=== PATIENT | male | born 1950 | race Caucasian/White ===

== ENCOUNTER 2021-06-03 23:05 | Emergency (ER) | payer MEDICARE, BC ==
[2021-06-03] MEDS ORDERED: Sodium Chloride 0.9% 10 ML Syringe FLUSH PRN (23:34)
[2021-06-04 00:03] LABS: ANION GAP 14.4 mmol/L (5-15); CHLORIDE,CL 98 mmol/L (98-107); SODIUM,NA 136 mmol/L (136-145)
[2021-06-04 00:57] VITALS: BP 165/99; PULSE 75
--- NOTE | 2021-06-04 03:53 | EDM.PDOC ---
ED HPI GENERAL MEDICAL PROBLEM - General Chief Complaint: Cardiovascular Problem Stated Complaint: heart "hiccup" Time Seen by Provider: 06/03/21 23:10 Source of Information: Reports: Patient, Family History Limitations: Reports: No Limitations - History of Present Illness INITIAL COMMENTS - FREE TEXT/NARRATIVE: Pt. presents to ER with complaints of palpitations. He states that the symptoms started this evening while he was watching TV. She states that the symptoms are intermittent in nature and had resolved by the time he arrived to ER. He denies any chest pain. No jaw, arm, neck or back pain. He denies any diaphoresis. No nausea, vomiting, or diarrhea. He states that he has not recently been ill. Pt. has a history of hypertension. He recently was taken off amlodipine and started on HCTZ because he has having problems with peripheral edema. He initially denied it, but according to his chart he did have some problems with palpitations in the past, for which he was prescribed Toprol XL. Onset: Today Onset Date: 06/04/21 Location: Reports: Chest - Related Data Allergies Allergy/AdvReac Type Severity Reaction Status Date / Time wool Allergy Rash Verified 09/11/16 08:39 Home Meds: Home Meds Cholecalciferol (Vitamin D3) [Vitamin D3] 1,000 units PO DAILY 09/09/16 [History] ClonazePAM [KlonoPIN] 0.25 mg PO BEDTIME 09/09/16 [History] Fish Oil/[place]-3 Fatty Acids [Fish Oil 1,000 MG] 1,000 mg PO DAILY 09/09/16 [His tory] Garlic 1,000 mg PO DAILY 09/09/16 [History] Metoprolol Succinate 50 mg PO DAILY 09/09/16 [History] Multivit-Min/FA/Lycopen/Lutein [Centrum Silver Tablet] 1 tab PO DAILY 09/09/16 [History] Sildenafil Citrate [Sildenafil] 100 mg PO DAILY PRN 09/09/16 [History] Triamcinolone Acetonide [Triamcinolone Acetonide 0.5%] 1 applic TOP BID PRN 09/09/16 [History] Ubidecarenone [Co Q-10] 100 mg PO DAILY 09/09/16 [History] atorvaSTATin [Lipitor] 10 mg PO BEDTIME 09/09/16 [History] Past Medical History HEENT History: Reports: Cataract, Hard of Hearing, Other (See Below) Other HEENT History: presbyopia. hypermetropia Cardiovascular History: Reports: High Cholesterol, Other (See Below) Other Cardiovascular History: palpitations Respiratory History: Reports: None Gastrointestinal History: Reports: GERD, Hemorrhoids Genitourinary History: Reports: Other (See Below) Other Genitourinary History: ed Musculoskeletal History: Reports: Neck Pain, Chronic, Osteoarthritis, Other (See Below) Other Musculoskeletal History: periodic limb movement disorder. carpal tunnel syndrome Neurological History: Reports: Neuropathy, Peripheral Other Neuro History: TINGLING TO FINGERS Psychiatric History: Reports: Other (See Below) Other Psychiatric History: sleep disturbance Endocrine/Metabolic History: Reports: None Hematologic History: Reports: None Immunologic History: Reports: None Oncologic (Cancer) History: Reports: Prostate Dermatologic History: Reports: None, Other (See Below) Other Dermatologic History: skin lesion to face - Past Surgical History HEENT Surgical History: Reports: Tonsillectomy, Other (See Below) Other HEENT Surgeries/Procedures: rt nasal mass excision Cardiovascular Surgical History: Reports: None GI Surgical History: Reports: None Male Surgical History: Reports: Prostatectomy Endocrine Surgical History: Reports: None Neurological Surgical History: Reports: None Musculoskeletal Surgical History: Reports: None Social & Family History - Family History Family Medical History: No Pertinent Family History - Caffeine Use Caffeine Use: Reports: Coffee ED ROS GENERAL - Review of Systems Review Of Systems: See Below Constitutional: Reports: No Symptoms HEENT: Reports: No Symptoms Respiratory: Reports: No Symptoms Cardiovascular: Reports: Palpitations, Other (fluttering in chest) Endocrine: Reports: No Symptoms GI/Abdominal: Reports: No Symptoms : Reports: No Symptoms Musculoskeletal: Reports: No Symptoms Skin: Reports: No Symptoms Neurological: Reports: No Symptoms Psychiatric: Reports: No Symptoms Hematologic/Lymphatic: Reports: No Symptoms Immunologic: Reports: No Symptoms ED EXAM, GENERAL - Physical Exam Exam: See Below Exam Limited By: No Limitations General Appearance: Alert, WD/WN, No Apparent Distress Neck: Normal Inspection, Supple, Non-Tender, Full Range of Motion Respiratory/Chest: No Respiratory Distress, Lungs Clear, Normal Breath Sounds, No Accessory Muscle Use, Chest Non-Tender Cardiovascular: Normal Peripheral Pulses, Regular Rate, Rhythm, No Edema, No JVD, No Murmur Peripheral Pulses: 4+: Radial (L) GI/Abdominal: Soft, Non-Tender, No Distention, No Mass (Male) Exam: Deferred Rectal (Males) Exam: Deferred Back Exam: Normal Inspection Extremities: Normal Inspection, Normal Range of Motion, Non-Tender, No Pedal Edema, Normal Capillary Refill Neurological: Alert, Oriented, CN II-XII Intact, Normal Cognition, Normal Gait, No Motor/Sensory Deficits Psychiatric: Normal Affect, Normal Mood Skin Exam: Warm, Dry, Normal Color. No: Diaphoretic Course - Vital Signs Last Recorded V/S: Last Vital Signs Temp 36.8 C 06/03/21 23:05 Pulse 75 06/04/21 00:40 Resp 10 L 06/04/21 00:40 BP 165/99 H 06/04/21 00:40 Pulse Ox 95 06/04/21 00:40 - Orders/Labs/Meds Orders: Active Orders 24 hr Category Date Time Status Peripheral IV Insertion Adult [OM.PC] Routine Oth 06/03/21 23:35 Ordered Labs: Laboratory Tests 06/03/21 06/03/21 06/03/21 Range/Units 23:30 23:30 23:30 WBC 6.2 (4.0-10.0) x10^3/uL RBC 4.64 (4.5-6.0) x10^6/uL Hgb 14.4 (14.0-18.0) g/dL Hct 41.0 (40.0-52.0) % MCV 88.4 (78.0-93.0) fL MCH 31.0 (26.0-32.0) pg MCHC 35.1 (32.0-36.0) g/dL RDW Coeff of Johnathan 13.5 (10.0-15.0) % Plt Count 159 (130-400) x10^3/uL Neut % (Auto) 58.0 (50.0-80.0) % Lymph % (Auto) 25.9 (25.0-50.0) % Mcintosh % (Auto) 13.5 H (2.0-11.0) % Eos % (Auto) 2.3 (0.0-4.0) % Baso % (Auto) 0.3 (0.2-1.2) % Sodium 136 (136-145) mmol/L Potassium 3.4 L (3.5-5.1) mmol/L Chloride 98 (98-107) mmol/L Carbon Dioxide 27 (21-32) mmol/L Anion Gap 14.4 (5-15) mmol/L BUN 17 (7-18) mg/dL Creatinine 1.0 (0.70-1.30) mg/dL Est Cr Clr Drug Dosing 70.07 mL/min Estimated GFR (MDRD) > 60 Glucose 119 H (70-99) mg/dL Calcium 9.0 (8.5-10.1) mg/dL Corrected Calcium 8.9 (8.5-10.1) mg/dL Phosphorus 4.1 (2.6-4.7) mg/dL Magnesium 2.4 (1.8-2.4) mg/dL Total Bilirubin 0.9 (0.2-1.0) mg/dL AST 24 (15-37) U/L ALT 36 (16-63) U/L Alkaline Phosphatase 86 (46-116) U/L Troponin I High Sens 3 (<=76) ng/L Total Protein 7.9 (6.4-8.2) g/dL Albumin 4.1 (3.4-5.0) g/dL Globulin 3.8 Albumin/Globulin Ratio 1.08 TSH, Ultra Sensitive 2.486 (0.358-3.74) uIU/mL Meds: Medications Discontinued Medications Generic Name Dose Route Start Last Admin Trade Name Freq PRN Reason Stop Dose Admin Sodium Chloride 10 ml 06/03/21 23:34 Sodium Chloride 0.9% 10 Ml Syringe FLUSH ASDIRECTED PRN Keep Vein Open Departure - Departure Time of Disposition: 00:45 Disposition: Home, Self-Care 01 Clinical Impression: Palpitations Instructions: Palpitations, [id number] Referrals: PCP,None [Primary Care Provider] - Forms: ED Department Discharge Additional Instructions: Increase toprol XL to 2 tablets in the morning. This will be beneficial for your blood pressure and may decrease your palpitations. Your EKG was unchanged, and your labs were all within normal limits. Recheck in clinic in 7-10 days. Return to ER if you feel like your heart is racing, if you have any chest pain, or shortness of breath. Sepsis Event Note (ED) - Evaluation Sepsis Screening Result: No Definite Risk - Focused Exam Vital Signs: Vital Signs Temp Pulse Resp BP Pulse Ox 06/04/21 00:40 75 10 L 165/99 H 95 06/03/21 23:05 36.8 C 78 12 179/100 H 96 - Problem List Review Problem List Initiated/Reviewed/Updated: Yes - My Orders Last 24 Hours: My Active Orders 06/03/21 23:35 Peripheral IV Insertion Adult [OM.PC] Routine - Assessment/Plan Last 24 Hours: My Active Orders 06/03/21 23:35 Peripheral IV Insertion Adult [OM.PC] Routine Plan: Pt. was discharged. All labs were within normal limits. EKG was compared with pervious and was unchanged. Pt. was monitored during his stay and did not have any dysrhythmias and had minimal PVCs. Did advise his to increase his Toprol XL to 100mg daily, as he was hypertensive during his stay. Advised close follow-up with his PCP. If he is continuing to have symptoms, he may need to do a Holter study. Advised to return to ER if he has persistent palpitations, racing heart, chest pain, or shortness of breath.
== END 2021-06-04 00:45 | disposition home or self-care (01) ==
LOC: VM.ED 23:05
DX: R00.2 Palpitations (principal); E78.00 Pure hypercholesterolemia, unspecified; Z91.09 Other allergy status, other than to drugs and biological substances; Z79.899 Other long term (current) drug therapy
CPT/HCPCS: 80053; 83735; 84100; 84443; 84484; 85025; 93005; 99284; 99285-25